=== PATIENT | female | born 1975 | race Caucasian/White ===

== ENCOUNTER 2021-06-27 10:47 | Emergency (ER) | payer OTHER ==
[2021-06-27 11:03] VITALS: BP 109/60; PULSE 62; TEMP 98.2; BMI 21.7
== END 2021-06-27 11:48 | disposition home or self-care (01) ==
LOC: FER 10:47
DX: S01.81XA Laceration without foreign body of other part of head, initial encounter (principal); W22.09XA Striking against other stationary object, initial encounter; Y93.E1 Activity, personal bathing and showering
CPT/HCPCS: 99281-25